=== PATIENT | female | born 1980 | race African-American/Black ===

== ENCOUNTER 2023-06-17 20:28 | Emergency (ER) | payer SELFPAY ==
[2023-06-17] MEDS ORDERED: Ibuprofen 200 MG TAB ONE (23:04)
[2023-06-17] MEDS ORDERED: Dexamethasone 4 MG TAB ONE (23:04)
[2023-06-17 23:20] LABS: Mononucleosis NEGATIVE (NEGATIVE)
[2023-06-17 23:21] LABS: MONO NEGATIVE CONTROL ZONE White (Negative) (White); MONO POSITIVE CONTROL Pink Line (Positive) (PINK/RED)
[2023-06-17 23:28] LABS: SARS-CoV-2 NAA Rapid Test Not Detected (NotDetected)
== END 2023-06-17 23:53 | disposition home or self-care (01) ==
LOC: CSHERS 20:28
DX: J02.9 Acute pharyngitis, unspecified (principal); Z20.822 Contact with and (suspected) exposure to COVID-19
CPT/HCPCS: 36415; 86308; 87081; 87430; 99283; J8540

== ENCOUNTER 2024-07-04 15:19 | Emergency (ER) | payer BC, SELFPAY ==
[~2024-07-04 15:19] MED LIST: Iopamidol 300 61% 100 ML VIAL FS ONE
[2024-07-04 16:13] LABS: #Basophils 0.05 10x3/uL (0.0-0.2); #Eosinophils 0.23 10x3/uL (0.0-0.5); #Monocytes 0.66 10x3/uL (0.0-1.1); #Neutrophils 4.22 10x3/uL (1.5-8.4); %Basophils 0.5 % (0.0-2.0); %Eosinophils 2.5 % (0.0-6.0); %Lymphocytes 43.5 % (18.0-47.0); %Monocytes 7.2 % (0.0-10.0); %Neutrophils 46.1 % (40.0-75.0); Hematocrit 37.9 % (34.9-44.5); Hemoglobin 12.1 g/dL (12.0-15.5); Mean Corpuscular HGB CONC 31.9 g/dL (32.0-36.0); Mean Corpuscular Hemoglobin 25.7 pg (27.0-33.0); Mean Corpuscular Volume 80.6 fL (81.6-98.3); Mean Platelet Volume 9.9 fL (7.4-10.4); Platelet Count 389 10x3/uL (150-450); RBC Distribution Width 13.3 % (11.5-14.5); White Blood Cell (WBC) Count 9.2 10x3/uL (3.5-10.5)
[2024-07-04 16:20] LABS: BHCG - Serum Negative (NEGATIVE); Pregs Control Background? CLEAR/WHITE (CLR/WHITE); Pregs Control Bar Appear? YES (CONTROL BAR)
[2024-07-04 16:29] LABS: ALT (SGPT) 21 U/L (8-55); AST (SGOT) 23 U/L (5-34); Albumin 3.6 g/dL (3.5-5.0); Alkaline Phosphatase 93 U/L (40-110); Anion Gap 14 mmol/L (10-20); BUN (Urea Nitrogen) 8 mg/dL (7.0-18.7); Bilirubin, Total 0.3 mg/dL (0.2-1.2); Calc. Creatinine Clearance 0 mL/min (70-130); Calcium 9.5 mg/dL (7.8-10.44); Carbon Dioxide 23 mmol/L (22-29); Chloride 107 mmol/L (98-107); Estimated GFR 95; Globulin 4.2 g/dL (2.4-3.5); Glucose 109 mg/dL (70-105); Lipase 36 U/L (8-78); Potassium 3.6 mmol/L (3.5-5.1); Protein, Total 7.8 g/dL (6.0-8.3); Sodium 140 mmol/L (136-145)
[2024-07-04 17:12] LABS: Bilirubin Neg (Negative); Blood, Urine Negative (Negative); Clarity Cloudy (Clear); Glucose, Urine (Dipstick) Normal (Negative); Ketone, Urine Negative (Negative); Leukocyte 25 (Negative); Nitrite Negative (Negative); Protein, Urine (Dipstick) 30 mg/dl (Neg-Trace)
[2024-07-04 17:26] LABS: Bacteria/HPF 1+ HPF (None Seen); CAUTI Indications for Culture Pelvic or flank pain; Mucous/LPF 1+ LPF (<2+); RBC/HPF 0-3 HPF (0-3); WBC/HPF 0-3 HPF (0-3)
[2024-07-04 17:27] LABS: Urine Culture Reflex No No
[2024-07-04] MEDS ORDERED: Morphine 4 MG/ML VIAL ONE (17:33)
[2024-07-04] MEDS ORDERED: Ondansetron PF 4 MG/2 ML Vial ONE (17:33)
== END 2024-07-04 18:46 | disposition home or self-care (01) ==
LOC: CSHERS 15:19
DX: R10.31 Right lower quadrant pain (principal)
CPT/HCPCS: 36415; 74177; 80053; 81001; 83690; 84703; 85025; 96361; 96374; 96375; J2272; J2405; Q9967

== ENCOUNTER 2024-09-15 15:20 | Emergency (ER) | payer BC | END 2024-09-15 16:03 | disposition left against medical advice (07) | LOC: CSHERS 15:20 | DX: Z53.21 Procedure and treatment not carried out due to patient leaving prior to being seen by health care provider (principal) ==